=== PATIENT | female | born 1970 | race African-American/Black ===

== ENCOUNTER 2017-03-20 21:23 | Emergency (ER) | payer OTHER ==
[~2017-03-20] VITALS: Ht 160 cm; Wt 81.6 kg
--- NOTE | 2017-03-20 21:43 | NUR ---
PT BIBSELF AMBULATORY TO ER BED 4 PT STATES SHE IS ON COUMADIN AND USED A MONASTAT AND IS NOW HAVING VAGINAL BLEEDING WITH CLOTS. PT AOX4 RR EVEN AND UNLABORED. NO SOB NOTED. NAD NOTED. NO NVD AT THIS TIME. PT NOT DIAPHORETIC. PT GOWNED AND PLACED ON MONITOR WAITING FOR MD SELLERS.
--- NOTE | 2017-03-20 22:30 | NUR ---
LAB AT BEDSIDE FOR BLOOD DRAW.
--- NOTE | 2017-03-20 22:34 | NUR ---
ROXANNE AT BEDSIDE
--- NOTE | 2017-03-20 22:44 | NUR ---
URINE COLLECTED. CALLED LAB FOR BODY MAKE UP ARTIST.
[2017-03-20 22:49] LABS: BASOPHILS # (AUTO) 0.1 /CMM (0.0-0.2); BASOPHILS % (AUTO) 0.6 % (0.0-2.0); EOSINOPHILS # (AUTO) 0.1 /CMM (0.0-0.7); EOSINOPHILS % (AUTO) 1.2 % (0.0-6.0); HEMATOCRIT 35 % (33-45); HEMOGLOBIN 11.7 g/dL (11.5-14.8); LYMPHOCYTES # (AUTO) 3.2 /CMM (0.8-4.8); MEAN CORPUSCULAR HEMOGLOBIN 26 PG (26.0-33.0); MEAN CORPUSCULAR HGB CONC 33 g/dl (31.0-36.0); MEAN CORPUSCULAR VOLUME 78 fL (82-100); MONOCYTES # (AUTO) 0.7 /CMM (0.1-1.30); MONOCYTES % (AUTO) 8.4 % (2.0-12.0); NEUTROPHILS # (AUTO) 4.4 /CMM (1.8-8.9); NEUTROPHILS % (AUTO) 51.8 % (43.0-81.0); PLATELET COUNT (AUTO) 245 /CMM (150-450); RDW COEFFICIENT OF VARIATION 13.6 (11.5-15.0); RED BLOOD CELL COUNT(AUTO) 4.48 MIL/uL (4.0-5.2); WHITE BLOOD COUNT (AUTO) 8.5 K/uL (4.3-11.0)
[2017-03-20 22:56] LABS: APPEARANCE,URINE CLOUDY (CLEAR); BILIRUBIN,URINE NEGATIVE (NEGATIVE); BLOOD, URINE 3+ Ery/uL (NEGATIVE); CALCIUM, SERUM 8.9 mg/dL (8.5-10.1); COLOR,URINE RED (YELLOW); CREATININE 0.8 mg/dL (0.6-1.3); KETONES,URINE NEGATIVE (NEGATIVE); LEUKOCYTE ESTERASE ,URINE 1+ (NEGATIVE); NITRITE, URINE NEGATIVE (NEGATIVE); POTASSIUM 3.4 mmol/L (3.5-5.1); PROTEIN,URINE 2+ mg/dl (NEGATIVE); UGLUCOSE NEGATIVE (NEGATIVE); UROBILINOGEN,URINE 0.2 EU/dL (0.2)
[2017-03-20 22:59] LABS: INR 2.06 (0.87-1.13); PROTHROMBIN TIME 23.1 SECS (9.5-12.7)
[2017-03-20 23:04] LABS: BACTERIA,URINE None seen /HPF (None Seen); RBC,URINE TOO NUMEROUS TO COUN /HPF (0-2); SQUAMOUS EPITHELIAL CELL,UR Few /HPF (None Seen)
[2017-03-20 23:05] LABS: PREGNANCY TEST URINE QUAL NEGATIVE (NEGATIVE)
--- NOTE | 2017-03-21 | NUR ---
DR. TARANGO AT BEDSIDE SPEAKING TO PT AND FAMILY REGARDING RESULTS.
--- NOTE | 2017-03-21 00:08 | NUR ---
Patient discharged to home in stable condition. Written and verbal after care instructions given. Patient verbalizes understanding of instruction. ambulatory with a steady gait.
[2017-03-21 00:10] VITALS: BP 160/86
== END 2017-03-21 00:10 | disposition home or self-care (01) ==
LOC: ER 21:23
DX: N93.9 Abnormal uterine and vaginal bleeding, unspecified (principal); D25.9 Leiomyoma of uterus, unspecified; R82.99 Other abnormal findings in urine; Z86.711 Personal history of pulmonary embolism
CPT/HCPCS: 36415; 76856-TC; 80048-TC; 81000-TC; 84703-TC; 85025-TC; 85610-TC; 86850-TC; 87086-TC; A4606; Z7610

== ENCOUNTER 2017-03-23 01:44 | Emergency (ER) | payer OTHER ==
[~2017-03-23] VITALS: Ht 160 cm; Wt 85.7 kg
--- NOTE | 2017-03-23 01:55 | NUR ---
To bed 21 a 46 yo female biself with c/o vaginal bleeding with clots, saturated 2 pads for the past hour. patient is taking coumadin 10mg earlier at 1700 for hx pulmonary embolism. patient was here "2 days ago for the same thing, bleeding is worse." patient is aaox4, ambulatory with steady gait, vss. nondiaphoretic. comfort measures rendered. awaiting for er md silverman.
--- NOTE | 2017-03-23 01:55 | NUR ---
To bed 21 a 46 yo female bibself with c/o vaginal bleeding with clots and reported to have saturated 2 pads for the past hour, took coumadin 10mg po at 1700 for hx PE. VSS. No s/s of acute distress. Denies dizziness, n/v. Comfort measures rendered. Awaiting for er md silverman.
--- NOTE | 2017-03-23 02:29 | NUR ---
blood drawn and sent to lab.
[2017-03-23 02:36] LABS: BASOPHILS % (AUTO) 0.5 % (0.0-2.0); EOSINOPHILS # (AUTO) 0.1 /CMM (0.0-0.7); EOSINOPHILS % (AUTO) 0.9 % (0.0-6.0); HEMATOCRIT 31 % (33-45); HEMOGLOBIN 10.4 g/dL (11.5-14.8); LYMPHOCYTES # (AUTO) 3.6 /CMM (0.8-4.8); LYMPHOCYTES % (AUTO) 37.7 % (20.0-44.0); MEAN CORPUSCULAR HEMOGLOBIN 26 PG (26.0-33.0); MEAN CORPUSCULAR HGB CONC 33 g/dl (31.0-36.0); MEAN CORPUSCULAR VOLUME 79 fL (82-100); MONOCYTES # (AUTO) 0.5 /CMM (0.1-1.30); MONOCYTES % (AUTO) 5.5 % (2.0-12.0); NEUTROPHILS # (AUTO) 5.3 /CMM (1.8-8.9); NEUTROPHILS % (AUTO) 55.4 % (43.0-81.0); PLATELET COUNT (AUTO) 226 /CMM (150-450); RDW COEFFICIENT OF VARIATION 13.9 (11.5-15.0); RED BLOOD CELL COUNT(AUTO) 3.97 MIL/uL (4.0-5.2); WHITE BLOOD COUNT (AUTO) 9.6 K/uL (4.3-11.0)
[2017-03-23 02:47] LABS: CREATININE 0.7 mg/dL (0.6-1.3); POTASSIUM 3.9 mmol/L (3.5-5.1)
[2017-03-23 02:50] LABS: INR 2.43 (0.87-1.13); PROTHROMBIN TIME 27.5 SECS (9.5-12.7)
--- NOTE | 2017-03-23 03:39 | NUR ---
Patient discharged to home in stable condition. Written and verbal after care instructions given. Patient verbalizes understanding of instruction. Patient is ambulatory with steady gait.
[2017-03-23 03:40] VITALS: BP 150/68
== END 2017-03-23 03:40 | disposition home or self-care (01) ==
LOC: ER 01:44
DX: D25.9 Leiomyoma of uterus, unspecified (principal); N93.9 Abnormal uterine and vaginal bleeding, unspecified; Z86.711 Personal history of pulmonary embolism; Z98.890 Other specified postprocedural states
CPT/HCPCS: 36415; 80048; 85025; 85730; 99284; A4606; Z7610

== ENCOUNTER 2017-12-12 11:26 | Emergency (ER) | payer OTHER ==
[~2017-12-12] VITALS: Ht 162.6 cm; Wt 68.0 kg
--- NOTE | 2017-12-12 11:30 | NUR ---
SOB X 5 DAY, NAD NOTED, VSS, RESP EVEN AND UNLABORED, PT PUT ON MONITOR, WAITING FOR MD SELLERS.
[2017-12-12 13:19] LABS: BASOPHILS % (AUTO) 0.5 % (0.0-2.0); EOSINOPHILS # (AUTO) 0.1 /CMM (0.0-0.7); EOSINOPHILS % (AUTO) 0.6 % (0.0-6.0); HEMATOCRIT 37 % (33-45); HEMOGLOBIN 12.5 g/dL (11.5-14.8); LYMPHOCYTES # (AUTO) 3.1 /CMM (0.8-4.8); MEAN CORPUSCULAR HEMOGLOBIN 27 PG (26.0-33.0); MEAN CORPUSCULAR HGB CONC 33 g/dl (31.0-36.0); MEAN CORPUSCULAR VOLUME 80 fL (82-100); MONOCYTES % (AUTO) 9.7 % (2.0-12.0); NEUTROPHILS # (AUTO) 5.9 /CMM (1.8-8.9); NEUTROPHILS % (AUTO) 58.2 % (43.0-81.0); PLATELET COUNT (AUTO) 232 /CMM (150-450); RDW COEFFICIENT OF VARIATION 14.1 (11.5-15.0); WHITE BLOOD COUNT (AUTO) 10.1 K/uL (4.3-11.0)
[2017-12-12 13:56] LABS: ALANINE AMINOTRANSFERASE 36 U/L (12-78); ALBUMIN 4.3 g/dL (3.4-5.0); ALKALINE PHOSPHATASE 113 U/L (46-116); ASPARTATE AMINOTRANSFERASE 22 U/L (15-37); BILIRUBIN,DIRECT 0.1 mg/dL (0.0-0.2); BILIRUBIN,TOTAL 0.3 mg/dL (0.2-1.0); CALCIUM, SERUM 10.1 mg/dL (8.5-10.1); CARBON DIOXIDE 29 mmol/L (21-32); CHLORIDE 99 mmol/L (98-107); CREATININE 0.8 mg/dL (0.6-1.3); GLUCOSE 109 mg/dL (74-106); POTASSIUM 3.7 mmol/L (3.5-5.1); SODIUM SERUM 138 mmol/L (136-145); TOTAL PROTEIN, SERUM 8.8 g/dL (6.4-8.2); UREA NITROGEN, BLOOD 7 mg/dL (7-18)
[2017-12-12 13:57] LABS: TROPONIN I < 0.017 ng/mL (0.00-0.056)
--- NOTE | 2017-12-12 14:11 | NUR ---
STEPHEN RN AT , FOR IV INSERT.
[2017-12-12] MEDS ORDERED: IOHEXOL-350 100 ML VIAL IV ONE (14:23)
[2017-12-12 15:58] VITALS: BP 142/72
--- NOTE | 2017-12-12 16:00 | NUR ---
Patient discharged to home in stable condition. Written and verbal after care instructions given. Patient verbalizes understanding of instruction.IV removed. Catheter intact and site benign. Pressure and 4x4 applied to site. No bleeding noted.
== END 2017-12-12 16:09 | disposition home or self-care (01) ==
LOC: ER 11:27
DX: R22.2 Localized swelling, mass and lump, trunk (principal); R06.02 Shortness of breath; Z86.711 Personal history of pulmonary embolism; Z98.890 Other specified postprocedural states
CPT/HCPCS: 36415; 71045; 71275; 80048; 80076; 84484; 85025; 85378; 93005; 99285; A4606; Q9967; Z7610

== ENCOUNTER 2018-11-19 14:16 | Emergency (ER) | payer OTHER ==
[~2018-11-19] VITALS: Ht 162.6 cm; Wt 86.2 kg
--- NOTE | 2018-11-19 14:48 | NUR ---
PT BROUGHT INTO EMERGENCY ROOM FOR 3 DAYS SOB PT STARTED WITH LEFT LEG PAIN AND STATES SHE HAS A HISTORY OF DVT CURRENTLY PT LUNG SOUNDS CLEAR NO PAIN IN LEFT LEG UPON PALPITATION PT ALERT WITH ORIENTATION X 4 ACCOMPANIED BY FRIEND
[2018-11-19] MEDS ORDERED: IV NS 0.9% 500 ML BAG IV ONE (15:00)
[2018-11-19 15:18] LABS: BASOPHILS # (AUTO) 0.1 /CMM (0.0-0.2); EOSINOPHILS % (AUTO) 1.2 % (0.0-6.0); HEMATOCRIT 37 % (33-45); HEMOGLOBIN 12.3 g/dL (11.5-14.8); LYMPHOCYTES # (AUTO) 2.1 /CMM (0.8-4.8); LYMPHOCYTES % (AUTO) 26.4 % (20.0-44.0); MEAN CORPUSCULAR HGB CONC 33 g/dl (31.0-36.0); MEAN CORPUSCULAR VOLUME 81 fL (82-100); MONOCYTES # (AUTO) 0.6 /CMM (0.1-1.30); MONOCYTES % (AUTO) 7.3 % (2.0-12.0); NEUTROPHILS # (AUTO) 5.1 /CMM (1.8-8.9); NEUTROPHILS % (AUTO) 64.1 % (43.0-81.0); PLATELET COUNT (AUTO) 217 /CMM (150-450); RED BLOOD CELL COUNT(AUTO) 4.59 MIL/uL (4.0-5.2)
[2018-11-19 15:25] LABS: CALCIUM, SERUM 9.6 mg/dL (8.5-10.1); CARBON DIOXIDE 31 mmol/L (21-32); CHLORIDE 104 mmol/L (98-107); CREATININE 0.8 mg/dL (0.6-1.3); GLUCOSE 154 mg/dL (74-106); POTASSIUM 4.4 mmol/L (3.5-5.1); SODIUM SERUM 141 mmol/L (136-145); UREA NITROGEN, BLOOD 9 mg/dL (7-18)
[2018-11-19] MEDS ORDERED: IV NS 0.9% 250 ML IV ONE (15:44)
[2018-11-19] MEDS ORDERED: IOHEXOL-350 100 ML VIAL IV ONE (15:44)
[2018-11-19] MEDS ORDERED: CT SWABBABLE VALVE TRANS SET 1 EA INFUS.SET MC ONE (15:44)
--- NOTE | 2018-11-19 15:44 | NUR ---
PIV PLACED PT TAKEN TO CT SCAN
[2018-11-19 15:46] LABS: B-TYPE NATRIURETIC PEPTIDE 337 PG/ML (0-125)
[2018-11-19 17:04] LABS: D-DIMER 1.18 mg/L(FEU (0.17-0.50)
[2018-11-19] MEDS ORDERED: CEFTRIAXONE 1GM BAG (ER ONLY) 50 ML IV ONE (18:27)
[2018-11-19] MEDS ORDERED: AZITHROMYCIN 250 MG TABLET ONE (18:28)
[2018-11-19] MEDS ORDERED: CEFTRIAXONE 1 G in IV D5W 50 ML IV ONE (18:30)
[2018-11-19] MEDS ORDERED: AZITHROMYCIN 250 MG TABLET PO ONE (18:30)
--- NOTE | 2018-11-19 18:30 | NUR ---
ADDENDUM: Intravenous End Time Documentation: Rocephin 1 gram IVPB: start time: 1803 ; end time:181 IV site: RAC # 20 Port #1
--- NOTE | 2018-11-19 18:40 | NUR ---
PT DISCHARGED TO FRIEND FOR HOME GIVEN ACI AND PRESCRIPTION ALL MEDICATIONS BEFORE DISCHARGE PIV REMOVED WITH TIP INTACT
[2018-11-19 18:41] VITALS: BP 184/105
== END 2018-11-19 19:37 | disposition home or self-care (01) ==
LOC: ER 14:29
DX: J18.9 Pneumonia, unspecified organism (principal); Z86.711 Personal history of pulmonary embolism; Z86.718 Personal history of other venous thrombosis and embolism
CPT/HCPCS: 36415; 71045; 71275; 80048; 83880; 84484; 84702; 85025; 85378; 85730; 93005; 96365; 99284; A4606; J0696; J7040; J7050; J7060; Q9967; Z7610

== ENCOUNTER 2019-10-25 12:28 | Emergency (ER) | payer OTHER ==
[~2019-10-25] VITALS: Ht 167.6 cm; Wt 79.4 kg
--- NOTE | 2019-10-25 12:51 | NUR ---
CAME IN FOR SOB X 2 DAYS. PATIENT STATES "MORE OF TIGHTNESS FEELING WHEN I BREATH, I REMEMBER I FELT THIS WAY WHEN I HAD PNEUMONIA". ALSO C/O R SIDE EAR PAIN. TO ER BED 10, HOOKED TO MONITOR, CHANGED TO HOSP GOWN, PROVIDED W WARM BLANKET, PATIENT AO x 4, BREATHING EVEN AND UNLABORED, AWAITING MD SELLERS. KEPT SAFE AND COMFORTABLE.
--- NOTE | 2019-10-25 13:00 | NUR ---
AGUSTIN PATEL AT BEDSIDE
--- NOTE | 2019-10-25 13:31 | NUR ---
SPIRITUAL COUNSELOR AT BEDSIDE
[2019-10-25 13:32] LABS: BASOPHILS # (AUTO) 0.1 /CMM (0.0-0.2); BASOPHILS % (AUTO) 0.6 % (0.0-2.0); EOSINOPHILS % (AUTO) 0.9 % (0.0-6.0); HEMATOCRIT 37 % (33-45); HEMOGLOBIN 12.1 g/dL (11.5-14.8); LYMPHOCYTES # (AUTO) 2.1 /CMM (0.8-4.8); LYMPHOCYTES % (AUTO) 23.4 % (20.0-44.0); MEAN CORPUSCULAR HGB CONC 33 g/dl (31.0-36.0); MEAN CORPUSCULAR VOLUME 82 fL (82-100); MONOCYTES # (AUTO) 0.7 /CMM (0.1-1.30); MONOCYTES % (AUTO) 7.3 % (2.0-12.0); NEUTROPHILS % (AUTO) 67.8 % (43.0-81.0); PLATELET COUNT (AUTO) 202 /CMM (150-450); RED BLOOD CELL COUNT(AUTO) 4.54 MIL/uL (4.0-5.2); WHITE BLOOD COUNT (AUTO) 8.9 K/uL (4.3-11.0)
[2019-10-25 13:52] LABS: B-TYPE NATRIURETIC PEPTIDE 503 PG/ML (0-125); CALCIUM, SERUM 9.9 mg/dL (8.5-10.1); CARBON DIOXIDE 29 mmol/L (21-32); CHLORIDE 100 mmol/L (98-107); CREATININE 0.8 mg/dL (0.6-1.3); GLUCOSE 186 mg/dL (74-106); POTASSIUM 3.8 mmol/L (3.5-5.1); SODIUM SERUM 139 mmol/L (136-145); UREA NITROGEN, BLOOD 8 mg/dL (7-18)
[2019-10-25] MEDS ORDERED: IOHEXOL-300 100 ML VIAL IV ONE (14:21)
[2019-10-25] MEDS ORDERED: CT SWABBABLE VALVE TRANS SET 1 EA INFUS.SET MC ONE (14:23)
[2019-10-25] MEDS ORDERED: IV NS 0.9% 250 ML IV ONE (14:23)
--- NOTE | 2019-10-25 14:50 | NUR ---
WHEELED OUT VIA FELICIANO FOR CTA
[2019-10-25 16:40] VITALS: BP 157/98
--- NOTE | 2019-10-25 16:40 | NUR ---
IV removed. Catheter intact and site benign. Pressure and 4x4 applied to site. No bleeding noted.Patient discharged to home in stable condition. Written and verbal after care instructions given. Patient verbalizes understanding of instruction.
== END 2019-10-25 16:41 | disposition home or self-care (01) ==
LOC: ER 12:28
DX: R06.02 Shortness of breath (principal); R91.1 Solitary pulmonary nodule; Z86.711 Personal history of pulmonary embolism; Z86.73 Personal history of transient ischemic attack (TIA), and cerebral infarction without residual deficits; Z98.890 Other specified postprocedural states
CPT/HCPCS: 36415; 71045; 71275; 80048; 83880; 84484; 85025; 85378; 87804 ×2; 93005; 99284; J7050; Q9967; A6407

== ENCOUNTER 2023-08-30 11:06 | Emergency (ER) | payer MEDICAID, OTHER ==
[~2023-08-30] VITALS: Ht 162.6 cm; Wt 77.6 kg
[2023-08-30 12:28] LABS: BASOPHILS % (AUTO) 0.7 % (0.0-2.0); EOSINOPHILS % (AUTO) 0.6 % (0.0-6.0); HEMATOCRIT 37 % (33-45); HEMOGLOBIN 11.9 g/dL (11.5-14.8); LYMPHOCYTES # (AUTO) 1.9 K/uL (0.8-4.8); MEAN CORPUSCULAR HEMOGLOBIN 25 PG (26.0-33.0); MEAN CORPUSCULAR HGB CONC 33 g/dl (31.0-36.0); MEAN CORPUSCULAR VOLUME 78 fL (82-100); MONOCYTES # (AUTO) 0.4 K/uL (0.1-1.30); MONOCYTES % (AUTO) 5.2 % (2.0-12.0); NEUTROPHILS # (AUTO) 4.6 K/uL (1.8-8.9); NEUTROPHILS % (AUTO) 66.5 % (43.0-81.0); PLATELET COUNT (AUTO) 245 K/uL (150-450); RED CELL DISTRIBUTION WIDTH 14.6 % (11.5-15.0)
[2023-08-30 12:50] LABS: CALCIUM, SERUM 9.4 mg/dL (8.5-10.1); CARBON DIOXIDE 25 mmol/L (21-32); CHLORIDE 100 mmol/L (98-107); CREATININE 0.6 mg/dL (0.6-1.3); GLUCOSE 308 mg/dL (74-106); NT-PRO BNP 970 pg/mL (0-125); POTASSIUM 4.4 mmol/L (3.5-5.1); SODIUM SERUM 137 mmol/L (136-145); UREA NITROGEN, BLOOD 7 mg/dL (7-18)
[2023-08-30] MEDS ORDERED: FUROSEMIDE 20 MG TABLET PO ONE (14:30)
[2023-08-30] MEDS ORDERED: FUROSEMIDE 20 MG TABLET ONE (14:48)
[2023-08-30] MEDS ORDERED: FURO-145 PO (15:16)
[2023-08-30 15:33] VITALS: BP 165/90; TEMP 98.4; O2SAT 97
== END 2023-08-30 15:33 | disposition home or self-care (01) ==
LOC: ER 11:21
DX: R09.89 Other specified symptoms and signs involving the circulatory and respiratory systems (principal); R06.02 Shortness of breath; Z98.890 Other specified postprocedural states
CPT/HCPCS: 36415; 71045-TC; 80048-TC; 83880; 84484-TC; 85025-TC

== ENCOUNTER 2024-10-11 15:09 | Emergency (ER) | payer MEDICAID ==
[~2024-10-11] VITALS: Ht 162.6 cm; Wt 77.6 kg
[~2024-10-11 15:09] MED LIST: FURO-145 PO
[2024-10-11 16:20] VITALS: BP 161/73; TEMP 98.3; O2SAT 99
== END 2024-10-11 16:50 | disposition home or self-care (01) ==
LOC: ER 15:16
DX: E11.65 Type 2 diabetes mellitus with hyperglycemia (principal); Z79.899 Other long term (current) drug therapy; Z86.718 Personal history of other venous thrombosis and embolism; Z87.09 Personal history of other diseases of the respiratory system

== ENCOUNTER 2024-11-08 10:50 | Emergency (ER) | payer MEDICAID ==
[~2024-11-08] VITALS: Ht 162.6 cm; Wt 77.6 kg
[2024-11-08 12:02] LABS: BASOPHILS % (AUTO) 0.5 % (0.0-2.0); EOSINOPHILS % (AUTO) 0.2 % (0.0-6.0); HEMATOCRIT 38 % (33-45); HEMOGLOBIN 12.7 g/dL (11.5-14.8); LYMPHOCYTES # (AUTO) 1.6 K/uL (0.8-4.8); LYMPHOCYTES % (AUTO) 22.7 % (20.0-44.0); MEAN CORPUSCULAR HEMOGLOBIN 26 PG (26.0-33.0); MEAN CORPUSCULAR HGB CONC 34 g/dl (31.0-36.0); MEAN CORPUSCULAR VOLUME 79 fL (82-100); MONOCYTES # (AUTO) 0.9 K/uL (0.1-1.30); MONOCYTES % (AUTO) 12.1 % (2.0-12.0); NEUTROPHILS # (AUTO) 4.6 K/uL (1.8-8.9); NEUTROPHILS % (AUTO) 64.5 % (43.0-81.0); PLATELET COUNT (AUTO) 185 K/uL (150-450); RED BLOOD CELL COUNT(AUTO) 4.81 MIL/uL (4.0-5.2); RED CELL DISTRIBUTION WIDTH 13.8 % (11.5-15.0); WHITE BLOOD COUNT (AUTO) 7.1 K/uL (4.3-11.0)
[2024-11-08 12:19] LABS: CALCIUM, SERUM 9.6 mg/dL (8.5-10.1); CARBON DIOXIDE 30 mmol/L (21-32); CHLORIDE 98 mmol/L (98-107); CREATININE 0.7 mg/dL (0.6-1.3); GLUCOSE 171 mg/dL (74-106); POTASSIUM 3.2 mmol/L (3.5-5.1); SODIUM SERUM 139 mmol/L (136-145); UREA NITROGEN, BLOOD 6 mg/dL (7-18)
[2024-11-08] MEDS: BENZONATATE 100 MG CAPSULE PO PRN (12:20)
[2024-11-08 13:20] LABS: ALANINE AMINOTRANSFERASE 31 U/L (12-78); ALBUMIN 3.8 g/dL (3.4-5.0); ALKALINE PHOSPHATASE 110 U/L (46-116); ASPARTATE AMINOTRANSFERASE 17 U/L (15-37); BILIRUBIN,DIRECT 0.1 mg/dL (0.0-0.2); BILIRUBIN,TOTAL 0.4 mg/dL (0.2-1.0); NT-PRO BNP 337 pg/mL (0-125); TOTAL PROTEIN, SERUM 8.7 g/dL (6.4-8.2)
[2024-11-08] MEDS ORDERED: BENZ-13 PO (13:33)
[2024-11-08] MEDS ORDERED: ALBU18HF2 INH (13:33)
[2024-11-08 13:55] VITALS: BP 138/72; TEMP 98.8; O2SAT 97
== END 2024-11-08 13:56 | disposition home or self-care (01) ==
LOC: ER 10:50
DX: R05.9 Cough, unspecified (principal); I10 Essential (primary) hypertension; Z79.899 Other long term (current) drug therapy; Z86.718 Personal history of other venous thrombosis and embolism; Z20.822 Contact with and (suspected) exposure to COVID-19
CPT/HCPCS: 36415; 71045-TC; 80048-TC; 80076-TC; 83880; 84484-TC; 85025-TC